=== PATIENT | male | born 1960 | race Caucasian/White ===

== ENCOUNTER 2024-02-06 07:16 | Day surgery (SDC) | payer BC ==
[~2024-02-06] VITALS: Ht 175.3 cm; Wt 104.5 kg
[2024-02-06] VITALS (11 sets, daily range): BP systolic 125–168; BP diastolic 66–88; PULSE 44–66; TEMP 97
[2024-02-06] MEDS ORDERED: 1/2 NS 1,000 ML IV SCH (07:30)
[2024-02-06] MEDS ORDERED: Nitroglycerin 2% Topical Oint 1 GM UD TD SCH (08:07)
[2024-02-06] MEDS ORDERED: LIPITOR20 MG PO (08:09)
[2024-02-06] MEDS ORDERED: PRIL40 PO (08:09)
[2024-02-06] MEDS ORDERED: MAG-OX 400400 MG/TAB PO (08:09)
[2024-02-06] MEDS ORDERED: ZYRTEC 10MG10 MG PO (08:10)
[2024-02-06] MEDS ORDERED: ZEBETA 5MG5 MG PO (08:11)
[2024-02-06] MEDS ORDERED: GLUMETZA1000 MG PO (08:11)
[2024-02-06] MEDS ORDERED: PULMICORT180 MCG/Ac IH (08:12)
[2024-02-06] MEDS ORDERED: CIALIS10 MG PO (08:13)
[2024-02-06] MEDS ORDERED: OZEMPIC1 MG/0.71 SQ (08:13)
[2024-02-06 08:18] LABS: HEMATOCRIT 40.8 % (42.0-52.0); HEMOGLOBIN 13.9 g/dl (13.5-18.0); MEAN CELL VOLUME 89 fl (80.0-100.0); MEAN CORPUSCULAR HEMOGLOBIN 30 pg (27-31); MEAN CORPUSCULAR HGB CONC 34 g/dl (33.0-37.0); PLATELET COUNT 182 K/mm3 (130-400); RED BLOOD COUNT 4.58 M/mm3 (4.20-5.60); REDCELL DISTRIBUTION WIDTH-CV 12.6 % (11.5-14.5)
[2024-02-06 08:31] LABS: CALCIUM 9.4 mg/dL (8.4-10.2); CREATININE, serum 0.86 mg/dL (0.72-1.25); POTASSIUM 3.5 mEq/L (3.5-4.5)
[2024-02-06 08:42] LABS: INR 1.1 (0.8-3.0); PROTHROMBIN TIME 11.9 SECONDS (9.7-12.8)
[2024-02-06] MEDS ORDERED: Acetylcysteine 600 MG CAP PO SCH (09:00)
--- NOTE | 2024-02-06 09:47 | NUR ---
See merge for all medication assessment,intervention times.
[2024-02-06] MEDS ORDERED: Heparin 1,000 UNITS/ML 10 ML Multi-Dose VIAL IV SCH (09:57)
[2024-02-06] MEDS ORDERED: niCARdipine (Cath Lab) 100 MCG/ML 10 ML VIAL INCOR SCH (09:58)
[2024-02-06] MEDS ORDERED: Iohexol 350 - 100 ML VIAL INCOR ONE (10:05)
[2024-02-06] MEDS ORDERED: Midazolam 2 MG/2 ML VIAL IV SCH (10:06)
[2024-02-06] MEDS ORDERED: fentaNYL 50 MCG/ML 2 ML VIAL IV SCH (10:06)
[2024-02-06] MEDS ORDERED: ALTACE 2.5MG T2.5 MG PO (11:25)
[2024-02-06] MEDS ORDERED: ASPIRIN E.C. 8181 MG PO (11:26)
--- NOTE | 2024-02-06 13:43 | NUR ---
PT TOLERATED RECOVERY PERIOD WELL. VS REMAINED WITHIN NORMAL LIMITS. RIGHT RADIAL SITE AND DRESSING REMAINED CLEAN, DRY, INTACT AND FREE FROM SIGNS OF BLEEDING AND HEMATOMA. PT VERBALIZED UNDERSTANDING OF DISCHARGE INSTRUCTIONS. PT ASSISTED TO MAIN LOBBY VIA WHEELCHAIR. IV DISCONTINUED. PT FREE FROM ACUTE CONCERNS AND COMPLAINTS UPON DISCHARGE.
== END 2024-02-06 13:45 | disposition home or self-care (01) ==
LOC: COL.CAR 07:16
PROVIDERS: Internal Medicine Cardiovascular Disease
DX: I25.10 Atherosclerotic heart disease of native coronary artery without angina pectoris (principal); I49.3 Ventricular premature depolarization; I42.0 Dilated cardiomyopathy
CPT/HCPCS: C1769; J1644; J2250; J2404; J3010; Q9967

== ENCOUNTER 2024-04-26 08:34 | Day surgery (SDC) | payer BC, MEDICARE ==
[~2024-04-26] VITALS: Ht 177.8 cm; Wt 95.4 kg
[2024-04-26] VITALS (10 sets, daily range): BP systolic 117–136; BP diastolic 60–79; PULSE 67–80; TEMP 97.6–98.5
[~2024-04-26 08:34] MED LIST: ALTACE 2.5MG T2.5 MG PO; ASPIRIN E.C. 8181 MG PO; CIALIS10 MG PO; GLUMETZA1000 MG PO; LIPITOR20 MG PO; MAG-OX 400400 MG/TAB PO; OZEMPIC1 MG/0.71 SQ; PRIL40 PO; PULMICORT180 MCG/Ac IH; ZEBETA 5MG5 MG PO; ZYRTEC 10MG10 MG PO
[2024-04-26] MEDS ORDERED: 1/2 NS 1,000 ML IV SCH (09:00)
[2024-04-26] MEDS ORDERED: ceFAZolin 2 G in Water For Injection,Sterile 20 ML IV SCH (09:00)
[2024-04-26] MEDS ORDERED: GLUCOPHAGE1000 MG PO (09:07)
[2024-04-26] MEDS ORDERED: PROAIR HFA0.09 MG/AC IH (09:10)
[2024-04-26] MEDS ORDERED: OZEMPIC0.25 MG/02 SQ (09:10)
[2024-04-26 09:11] LABS: HEMOGLOBIN 14.3 g/dl (13.5-18.0); MEAN CELL VOLUME 90 fl (80.0-100.0); MEAN CORPUSCULAR HEMOGLOBIN 31 pg (27-31); MEAN CORPUSCULAR HGB CONC 34 g/dl (33.0-37.0); MEAN PLATELET VOLUME 9.7 fl (7.4-10.4); PLATELET COUNT 167 K/mm3 (130-400); RED BLOOD COUNT 4.68 M/mm3 (4.20-5.60); REDCELL DISTRIBUTION WIDTH-CV 12.2 % (11.5-14.5)
[2024-04-26 09:15] LABS: INR 1.1 (0.8-3.0); PROTHROMBIN TIME 12.5 SECONDS (9.7-12.8)
[2024-04-26 09:42] LABS: CALCIUM 8.9 mg/dL (8.4-10.2); CREATININE, serum 0.81 mg/dL (0.72-1.25); POTASSIUM 3.6 mEq/L (3.5-4.5)
[2024-04-26] MEDS ORDERED: NS 1,000 ML IV.SOLN. IR SCH (11:18)
[2024-04-26] MEDS ORDERED: Iohexol 350 - 100 ML VIAL IV ONE (11:20)
[2024-04-26] MEDS ORDERED: Midazolam 2 MG/2 ML VIAL IV SCH (12:02)
[2024-04-26] MEDS ORDERED: fentaNYL 50 MCG/ML 2 ML VIAL IV SCH (12:02)
[2024-04-26] MEDS ORDERED: Levalbuterol Neb Soln 1.25 MG/3 ML UD IH ONE (12:15)
[2024-04-26] MEDS ORDERED: Temazepam 15 MG CAP PO PRN (12:30)
[2024-04-26] MEDS ORDERED: Cetirizine 10 MG TAB PO PRN (12:30)
[2024-04-26] MEDS ORDERED: Albuterol 0.083% Neb Soln 2.5 MG/3 ML UD IH PRN (13:00)
[2024-04-26] MEDS ORDERED: Docusate Sodium 100 MG CAP PO PRN (13:00)
[2024-04-26] MEDS ORDERED: Acetaminophen 325 MG TAB PO PRN (13:00)
--- NOTE | 2024-04-26 13:15 | NUR ---
KAT ARRIVED FROM POST PM INSERTION, AWAKE ALERT AND ORIENTED WITH HIS AT BEDSIDE. PM SITE CDI, NO HEMATOMA, ICE PACK PLACED. BECKY DENEIS ANY NEEDS OR COMPLAITNS AT THIS TIME. CALL LIGHT WITHIN REACH.
[2024-04-26] MEDS ORDERED: Cephalexin 500 MG CAP PO SCH (14:00)
--- NOTE | 2024-04-26 14:30 | NUR ---
POST OP VITALS STABLE. PATIENT DENIES ANY NEEDS OR COMPLAINTS AT THIS TIME. CALL LIGHT WITHIN REACH. SLING TO LEFT ARM, PM CDI, ICE TO SITE.
--- NOTE | 2024-04-26 18:49 | NUR ---
BEDSIDE SHIFT REPORT COMPLETED. PATIENT CHECKED, DRY. PATIENT DENIES ANY NEEDS OR COMPLAINTS AT THIS TIME. UNABOOTS ON, FALL PRECAUTIONS IN PLACE.
[2024-04-26] MEDS ORDERED: Budesonide Neb Susp 0.5 MG/2 ML AMP IH SCH (19:00)
--- NOTE | 2024-04-26 20:30 | NUR ---
UPON SHIFT ASSESSMENT, PATIENT WAS UP IN BEDSIDE RECLINER, ARM IN SLING AND ICD SIDE COVERED BY GAUZE AND CDI. HE IS A&O X 4 AND IN GOOD SPIRITS. HE DENIES CHEST PAIN AND SOA AT THIS TIME. VS ARE WNL AND TELE IS CURRENTLY NS. CALL LIGHT WITHIN REACH.
[2024-04-27] VITALS (9 sets, daily range): BP systolic 102–134; BP diastolic 62–74; PULSE 71–79; TEMP 97.6–98.9
--- NOTE | 2024-04-27 06:18 | NUR ---
PATIENT HAD NO NEW EMERGENT STATUS CHANGES THROUGHOUT THE NIGHT AND EAGERLY AWAITS DISCHARGE. ICD/PACEMAKER SITE TO LT UPPER CHEST REMAINS CDI. PATIENT DENIES CHEST PAIN. RECENT EKG EXHIBITS NS WITH FREQUENT PVCs WITH INCOMPLETE RBBB. VS ARE WNL.
--- NOTE | 2024-04-27 06:49 | NUR ---
METRONICS PACEMAKER/ICD SUCCESSFULLY INTERROGATED.
[2024-04-27 06:50] LABS: BASO % 0.3 % (0.0-2.0); EOS # 0.2 K/mm3 (0.0-0.7); EOS % 3.8 % (0.0-4.0); GRAN # 3.7 K/mm3 (1.4-6.5); GRAN % 60.9 % (42.2-75.2); HEMATOCRIT 39.9 % (42.0-52.0); HEMOGLOBIN 13.7 g/dl (13.5-18.0); LYMPH # 1.7 K/mm3 (1.2-3.4); LYMPH % 27.9 % (20.0-51.0); MEAN CELL VOLUME 89 fl (80.0-100.0); MEAN CORPUSCULAR HEMOGLOBIN 30 pg (27-31); MEAN CORPUSCULAR HGB CONC 34 g/dl (33.0-37.0); MEAN PLATELET VOLUME 10.2 fl (7.4-10.4); MONO # 0.4 K/mm3 (0.1-0.6); MONO % 6.9 % (1.7-9.3); PLATELET COUNT 153 K/mm3 (130-400); REDCELL DISTRIBUTION WIDTH-CV 12.2 % (11.5-14.5)
[2024-04-27] MEDS ORDERED: Omeprazole 40 MG **** subs to Pantoprazole 40 MG PO SCH (07:00)
[2024-04-27 07:38] LABS: CALCIUM 8.9 mg/dL (8.4-10.2); CREATININE, serum 0.82 mg/dL (0.72-1.25); POTASSIUM 3.6 mEq/L (3.5-4.5)
--- NOTE | 2024-04-27 08:08 | NUR ---
pm downloaded at 7am and radiology called for cxr.
[2024-04-27] MEDS ORDERED: Bisoprolol 5 MG TAB PO SCH (09:00)
[2024-04-27] MEDS ORDERED: Magnesium Oxide 400 MG TAB PO SCH (09:00)
[2024-04-27] MEDS ORDERED: Atorvastatin 20 MG TAB PO SCH (09:00)
[2024-04-27] MEDS ORDERED: CEPHALEXIN500 M1 PO (11:00)
--- NOTE | 2024-04-27 14:17 | NUR ---
KAT GIVEN DISCHARGE INSTRUCTIONS AND EDUCAIOTN.PATIENT AND HIS GIVEN POST PM INSERTION SITE CARE INSTRUCTIONS, SLING PLACED ON PATIENT LEFT ARM AND HE WAS TAUGHT HOW TO PLACE AND REMOVE SLING. PATIENT TAKEN TO PATIENT ENTRANCE BY PCT WHERE HE LEFT IN STABLE CONDITION.
== END 2024-04-27 12:30 | disposition home or self-care (01) ==
LOC: COL.CAR 08:34 → MEDICAL 14:47 → COL.CAR 04-27 12:30
PROVIDERS: Internal Medicine Cardiovascular Disease
DX: I50.22 Chronic systolic (congestive) heart failure (principal); I42.0 Dilated cardiomyopathy
CPT/HCPCS: OP; C1721; C1777; C1894; C1898; J0665-JZ; J0688; J0690; J2250; J3010; J7030; Q9967

== ENCOUNTER 2024-06-13 14:05 | Outpatient (RCR) | payer BC, MEDICARE ==
[~2024-06-13 14:05] MED LIST changes: +CEPHALEXIN500 M1 PO; +GLUCOPHAGE1000 MG PO; +OZEMPIC0.25 MG/02 SQ; +PROAIR HFA0.09 MG/AC IH
== END 2024-06-14 | disposition home or self-care (01) ==
LOC: COL.CR
DX: Z02.89 Encounter for other administrative examinations (principal)